=== PATIENT | female | born 1965 | race African-American/Black ===

== ENCOUNTER 2017-08-03 09:52 | Emergency (ER) | payer BC ==
[~2017-08-03] VITALS: Ht 162.6 cm; Wt 90.9 kg
[2017-08-03 10:08] VITALS: TEMP 98.5
[2017-08-03 10:36] LABS: BASO % 0.3 % (0.0-2.0); EOS # 0.1 (0.0-0.7); EOS % 0.8 % (0-4.0); GRAN # 7.6 (1.4-6.5); GRAN % 67.5 % (42.2-75.2); HEMATOCRIT 41.9 % (37.0-47.0); HEMOGLOBIN 13.5 g/dl (12.5-16.0); LYMPH # 2.9 (1.2-3.4); LYMPH % 25.8 % (20.0-51.0); MEAN CELL VOLUME 89 fl (80.0-100.0); MEAN CORPUSCULAR HEMOGLOBIN 29 pg (27.0-31.0); MEAN CORPUSCULAR HGB CONC 32 g/dl (33.0-37.0); MEAN PLATELET VOLUME 10.3 fl (7.4-10.4); MONO # 0.6 (0.1-0.6); MONO % 5.2 % (1.7-9.3); PLATELET COUNT 311 K/mm3 (130-400); RED BLOOD COUNT 4.72 M/mm3 (4.10-5.30); REDCELL DISTRIBUTION WIDTH-CV 15.8 % (11.5-14.5)
[2017-08-03 10:48] LABS: ALANINE AMINOTRANSFERASE 30 U/L (9-52); ALBUMIN 4.2 gm/dL (3.5-5.0); ALKALINE PHOSPHATASE 96 U/L (50-136); ANION GAP 14 mmol/L (7-16); AST,SGOT 18 U/L (15-37); BILIRUBIN,TOTAL 0.4 mg/dL (0.0-1.0); BLOOD UREA NITROGEN 11 mg/dL (7-17); C-REACTIVE PROTEIN 1.7 mg/dL (0.0-0.9); CALCIUM 9.7 mg/dL (8.4-10.2); CARBON DIOXIDE 24 mmol/L (22-30); CHLORIDE 104 mmol/L (98-107); CREATININE, serum 0.59 mg/dL (0.52-1.25); GLUCOSE 167 mg/dL (74-106); LIPASE 187 U/L (23-300); POTASSIUM 3.7 mmol/L (3.4-5.0); SODIUM 142 mmol/L (137-145)
[2017-08-03 10:57] LABS: TROPONIN-I < 0.012 ng/mL (0.000-0.034)
[2017-08-03] MEDS ORDERED: TOPROL XL 25MG25 MG PO (11:14)
[2017-08-03 12:01] VITALS: BP 132/75; PULSE 75
== END 2017-08-03 12:27 | disposition home or self-care (01) ==
LOC: COL.ER 09:52
PROVIDERS: Emergency Medicine
DX: R00.2 Palpitations (principal); Z87.891 Personal history of nicotine dependence

== ENCOUNTER → 2019-01-19 | Outpatient (CLI) | payer OTHER ==
[~2019-01-19] MED LIST: FLEXERIL 1010 MG/TAB PO; LEVAQUIN 5500 MG/TA1 PO; NORCO 325 MG-51 TAB PO; TOPROL XL 25MG25 MG PO
== END ==
LOC: COL.RAD 09:55
DX: R10.9 Unspecified abdominal pain (principal); Z85.831 Personal history of malignant neoplasm of soft tissue; Z53.9 Procedure and treatment not carried out, unspecified reason

== ENCOUNTER → 2019-01-22 | Outpatient (CLI) | payer OTHER ==
[~2019-01-22] MED LIST changes: -FLEXERIL 1010 MG/TAB PO; -LEVAQUIN 5500 MG/TA1 PO; -NORCO 325 MG-51 TAB PO
== END ==
LOC: COL.RAD 11:13
DX: K57.30 Diverticulosis of large intestine without perforation or abscess without bleeding (principal); Z85.831 Personal history of malignant neoplasm of soft tissue; Z90.710 Acquired absence of both cervix and uterus
CPT/HCPCS: Q9967

== ENCOUNTER → 2019-01-26 | Outpatient (CLI) | payer OTHER ==
[2019-01-26 11:22] LABS: ALBUMIN 4.2 gm/dL (3.5-5.0); BILIRUBIN,TOTAL 0.3 mg/dL (0.0-1.0); CALCIUM 9.6 mg/dL (8.4-10.2); CREATININE, serum 0.51 (0.52-1.25); TOTAL PROTEIN 7.4 gm/dL (6.4-8.2)
[2019-01-26 11:24] LABS: BASO % 0.3 % (0.0-2.0); EOS # 0.1 (0.0-0.7); EOS % 0.8 % (0-4.0); GRAN # 7.9 (1.4-6.5); HEMATOCRIT 39.1 % (37.0-47.0); HEMOGLOBIN 12.7 g/dl (12.5-16.0); LYMPH # 3.2 (1.2-3.4); LYMPH % 26.5 % (20.0-51.0); MEAN CELL VOLUME 90 fl (80.0-100.0); MEAN CORPUSCULAR HEMOGLOBIN 29 pg (27.0-31.0); MEAN CORPUSCULAR HGB CONC 33 g/dl (33.0-37.0); MEAN PLATELET VOLUME 9.9 fl (7.4-10.4); MONO # 0.7 (0.1-0.6); MONO % 5.9 % (1.7-9.3); PLATELET COUNT 338 K/mm3 (130-400); RED BLOOD COUNT 4.36 M/mm3 (4.10-5.30); REDCELL DISTRIBUTION WIDTH-CV 15.3 % (11.5-14.5)
== END ==
LOC: COL.LAB 10:43
PROVIDERS: Registered Nurse
DX: R10.9 Unspecified abdominal pain (principal)

== ENCOUNTER 2019-02-28 17:07 | Emergency (ER) | payer OTHER ==
[~2019-02-28] VITALS: Ht 162.6 cm; Wt 100.0 kg
[2019-02-28 17:19] VITALS: BP 125/67; TEMP 98.3
[2019-02-28] MEDS ORDERED: FLEXERIL 1010 MG/TAB PO (17:30)
[2019-02-28] MEDS ORDERED: NORCO 325 MG-51 TAB PO (18:56)
[2019-02-28 19:04] VITALS: PULSE 88
[2019-03-01] MEDS ORDERED: LEVAQUIN 5500 MG/TA1 PO (19:14)
== END 2019-02-28 19:06 | disposition home or self-care (01) ==
LOC: COL.ER 17:07
DX: M54.6 Pain in thoracic spine (principal); Z90.710 Acquired absence of both cervix and uterus; Z90.89 Acquired absence of other organs; Z88.8 Allergy status to other drugs, medicaments and biological substances
CPT/HCPCS: J1885; J2360

== ENCOUNTER 2019-03-01 17:02 | Emergency (ER) | payer OTHER ==
[~2019-03-01] VITALS: Ht 162.6 cm; Wt 100.0 kg
[~2019-03-01 17:02] MED LIST changes: +FLEXERIL 1010 MG/TAB PO; +NORCO 325 MG-51 TAB PO
[2019-03-01 17:18] VITALS: TEMP 98.7
[2019-03-01 17:48] LABS: BASO % 0.2 % (0.0-2.0); EOS # 0.1 (0.0-0.7); EOS % 0.7 % (0-4.0); GRAN # 8.9 (1.4-6.5); GRAN % 66.6 % (42.2-75.2); HEMATOCRIT 39.3 % (37.0-47.0); HEMOGLOBIN 12.7 g/dl (12.5-16.0); LYMPH # 3.3 (1.2-3.4); LYMPH % 24.2 % (20.0-51.0); MEAN CELL VOLUME 91 fl (80.0-100.0); MEAN CORPUSCULAR HEMOGLOBIN 29 pg (27.0-31.0); MEAN CORPUSCULAR HGB CONC 32 g/dl (33.0-37.0); MEAN PLATELET VOLUME 9.8 fl (7.4-10.4); MONO # 1.1 (0.1-0.6); MONO % 7.9 % (1.7-9.3); PLATELET COUNT 286 K/mm3 (130-400); RED BLOOD COUNT 4.32 M/mm3 (4.10-5.30); REDCELL DISTRIBUTION WIDTH-CV 15.9 % (11.5-14.5)
[2019-03-01 18:02] LABS: ALANINE AMINOTRANSFERASE 18 U/L (9-52); ALBUMIN 4.5 gm/dL (3.5-5.0); ALKALINE PHOSPHATASE 86 U/L (50-136); ANION GAP 8 mmol/L (7-16); AST,SGOT 22 U/L (15-37); BILIRUBIN,TOTAL 0.3 mg/dL (0.0-1.0); BLOOD UREA NITROGEN 14 mg/dL (7-17); C-REACTIVE PROTEIN 4.8 mg/dL (0.0-0.9); CALCIUM 9.8 mg/dL (8.4-10.2); CARBON DIOXIDE 28 mmol/L (22-30); CHLORIDE 104 mmol/L (98-107); CREATININE, serum 0.59 (0.52-1.25); GLUCOSE 96 mg/dL (74-106); LIPASE 89 U/L (23-300); SODIUM 141 mmol/L (137-145); TOTAL PROTEIN 7.9 gm/dL (6.4-8.2)
[2019-03-01 18:17] LABS: TROPONIN-I < 0.012 ng/mL (0.000-0.035)
[2019-03-01 18:47] LABS: COLLECTION METHOD CLEAN CATCH
[2019-03-01 18:59] LABS: MUCOUS Present /lpf; PH 5 (5-8); URINE APPEARANCE Hazy; URINE BACTERIA None Seen /hpf; URINE BILIRUBIN Negative (NEGATIVE); URINE BLOOD Negative (NEGATIVE); URINE COLOR Yellow; URINE GLUCOSE Negative (NEGATIVE); URINE KETONE Negative (NEGATIVE); URINE LEUKOCYTE ESTERASE Negative (NEGATIVE); URINE NITRATE Negative (NEGATIVE); URINE PROTEIN(semi-quant) Negative (NEGATIVE); URINE UROBILINOGEN Negative (NEGATIVE)
[2019-03-01] MEDS ORDERED: LEVAQUIN 5500 MG/TA1 PO (19:14)
[2019-03-01 19:42] VITALS: BP 125/82; PULSE 88
== END 2019-03-01 19:45 | disposition home or self-care (01) ==
LOC: COL.ER 17:02
PROVIDERS: Emergency Medicine
DX: M54.6 Pain in thoracic spine (principal); J40 Bronchitis, not specified as acute or chronic; I10 Essential (primary) hypertension; F17.210 Nicotine dependence, cigarettes, uncomplicated
CPT/HCPCS: J1885; J2405; J3010